=== PATIENT | female | born 1955 | race Caucasian/White ===

== ENCOUNTER 2017-02-14 09:45 | Emergency (ER) | payer OTHER ==
[~2017-02-14] VITALS: Ht 157.5 cm; Wt 47.2 kg
[2017-02-14 10:07] LABS: HEMATOCRIT 41.3 % (36.0-46.0); MCH 29.1 PG (29.0-34.0); MCHC 33.2 G/DL (30.0-36.0); MCV 87.9 FL (83-99); MEAN PLAT.VOLUME 10.8 uM^3 (9.5-12.4); PLATELET COUNT 196 K/uL (156-360); RBC DIS.WIDTH-CV 11.7 % (11.8-14.6); WHITE BLOOD COUNT 6.4 K/uL (4.1-10.2)
[2017-02-14 10:15] LABS: CHLORIDE 103 mEq/L (99-109); POTASSIUM 3.7 mEq/L (3.7-5.4); SODIUM 137 mEq/L (136-147)
[2017-02-14 10:17] LABS: GLUCOSE 220 mg/dL (70-99)
[2017-02-14 10:18] LABS: ANION GAP 10 MEQ/L (2-14)
[2017-02-14 10:21] LABS: GFR ESTIMATE (CALCULATED) > 59 mL/min/
[2017-02-14 10:22] LABS: UREA NITROGEN (BUN) 19 mg/dL (9-23)
[2017-02-14 10:28] LABS: TROP-I INTERPRETATION NEGATIVE; TROPONIN-I < 0.01 ng/mL (0.0-0.30)
[2017-02-14 11:14] VITALS: BP 130/62
== END 2017-02-14 11:17 | disposition home or self-care (01) ==
LOC: EME 09:45
PROVIDERS: Emergency Medicine
DX: I47.1 Supraventricular tachycardia (principal)
CPT/HCPCS: 80048; 84484; 85027; 93005; 99281; 99284; J0153